=== PATIENT | female | born 1990 | race Caucasian/White ===

== ENCOUNTER 2022-05-01 17:59 | Emergency (ER) | payer OTHER ==
[2022-05-01 18:18] VITALS: BP 150/84
--- NOTE | 2022-05-01 19:45 | Emergency Department Report ---
ED General Adult HPI - General Chief complaint: Weakness Stated complaint: GENERALIZED WEAKNESS Time Seen by Provider: 05/01/22 19:18 Source: patient, police, EMS Mode of arrival: Stretcher Limitations: No Limitations - History of Present Illness Initial comments: The patient presents to the emergency department from a local [place] [facility] for evaluation of a fall. Patient states for the last week she has been extremely weak and describes her legs as spaghetti like in nature. She states due to her weakness the patient had a fall yesterday which resulted in her hitting her head. Patient states she is not sure if she lost consciousness or not and states the other inmates helped her get back on her feet into her buttock. She denies any neck pain, shortness breath, abdominal pain, chest pain -: Sudden Severity scale (0 -10): 0 Consistency: now resolved Improves with: none Worsens with: none Associated Symptoms: denies other symptoms Treatments Prior to Arrival: none - Related Data Allergies Allergy/AdvReac Type Severity Reaction Status Date / Time No Known Allergies Allergy Verified 05/01/22 18:19 ED Review of Systems ROS: Stated complaint: GENERALIZED WEAKNESS Other details as noted in HPI Comment: All other systems reviewed and negative Constitutional: denies: chills, fever Eyes: denies: eye pain, eye discharge, vision change ENT: denies: ear pain, throat pain Respiratory: denies: cough, shortness of breath, wheezing Cardiovascular: denies: chest pain, palpitations Endocrine: no symptoms reported Gastrointestinal: denies: abdominal pain, nausea, diarrhea Genitourinary: denies: urgency, dysuria, discharge Musculoskeletal: denies: back pain, joint swelling, arthralgia Skin: denies: rash, lesions Neurological: denies: headache, weakness, paresthesias Psychiatric: denies: anxiety, depression Hematological/Lymphatic: denies: easy bleeding, easy bruising ED Past Medical Hx - Past Medical History Hx Hypertension: Yes Hx Diabetes: Yes Hx Seizures: (Pseudo seizures) ED Physical Exam - General Limitations: No Limitations General appearance: alert, in no apparent distress - Head Head exam: Present: atraumatic, normocephalic - Eye Eye exam: Present: normal appearance - ENT ENT exam: Present: mucous membranes moist - Neck Neck exam: Present: normal inspection - Respiratory Respiratory exam: Present: normal lung sounds bilaterally. Absent: respiratory distress - Cardiovascular Cardiovascular Exam: Present: regular rate, normal rhythm. Absent: systolic murmur, diastolic murmur, rubs, gallop - GI/Abdominal GI/Abdominal exam: Present: soft, normal bowel sounds. Absent: distended, tenderness - Extremities Exam Extremities exam: Present: normal inspection - Back Exam Back exam: Present: normal inspection - Neurological Exam Neurological exam: Present: alert, oriented X3, CN II-XII intact. Absent: motor sensory deficit - Psychiatric Psychiatric exam: Present: normal affect, normal mood - Skin Skin exam: Present: warm, dry, intact, normal color. Absent: rash ED Course Vital Signs 05/01/22 05/01/22 18:17 19:24 Temperature 98.6 F Pulse Rate 84 77 Respiratory 18 Rate Blood Pressure 150/84 [Left] O2 Sat by Pulse 98 100 Oximetry ED Medical Decision Making - Medical Decision Making The patient refused to get laboratory work or CT done and signed out AMA Discussed with patient the seriousness of doing this without getting a CT of her head to evaluate for possible intracranial bleed which could lead to serious injury or . Patient states that she still want to leave because she was not doing a CAT scan. Critical care attestation.: If time is entered above; I have spent that time in minutes in the direct care of this critically ill patient, excluding procedure time. ED Disposition Clinical Impression: Closed head injury Disposition: LEFT AGAINST MEDICAL ADVICE Is pt being admited?: No Does the pt Need Aspirin: No Condition: Stable Instructions: Head Injury, Adult, [id number] Additional Instructions: Return if worse Time of Disposition: 20:46
[2022-05-01] MEDS ORDERED: LORazepam 1 MG TAB PO ONE (19:53)
--- NOTE | 2022-05-04 09:32 | Electrocardiograph Report ---
[facility] Test Date: 2022-05-01 Test Time: 19:18:49 Pat Name: SIMEON LAMBERT Department: Room: Gender: F Biology Laboratory Assistant: NURSE : 1990 Requested By: NICOLE HAMPTON Order Number: [id number] Reading MD: Abhijit Godinez Measurements Intervals [place] Rate: 76 P: 69 WV: 162 QRS: 53 QRSD: 88 T: 49 QT: 357 QTc: 402 Interpretive Statements Sinus rhythm WNL No previous ECG available for comparison Electronically Signed On 05-04-2022 9:32:30 EDT by Abhijit Godinez
== END 2022-05-01 21:21 | disposition left against medical advice (07) ==
LOC: ED 17:59
DX: S09.90XA Unspecified injury of head, initial encounter (principal); E11.9 Type 2 diabetes mellitus without complications; R56.9 Unspecified convulsions; X58.XXXA Exposure to other specified factors, initial encounter; Y93.89 Activity, other specified; Y92.89 Other specified places as the place of occurrence of the external cause; Y99.8 Other external cause status
CPT/HCPCS: 93005; 99283